=== PATIENT | male | born 2000 | race Caucasian/White ===

== ENCOUNTER 2023-09-13 09:40 | Emergency (ER) | payer SELFPAY ==
[~2023-09-13] VITALS: Ht 182.9 cm; Wt 72.7 kg
[2023-09-13 12:02] VITALS: BP 130/75; PULSE 70
== END 2023-09-13 12:07 | disposition home or self-care (01) ==
LOC: COL.ER 09:40
DX: S00.93XA Contusion of unspecified part of head, initial encounter (principal); S60.512A Abrasion of left hand, initial encounter; S60.511A Abrasion of right hand, initial encounter; V03.10XA Pedestrian on foot injured in collision with car, pick-up truck or van in traffic accident, initial encounter; Y92.410 Unspecified street and highway as the place of occurrence of the external cause